=== PATIENT | male | born 1970 | race Two or more races ===

== ENCOUNTER 2018-08-07 21:10 | Emergency (ER) | payer SELFPAY ==
[2018-08-07 22:53] VITALS: BP 127/71
[2018-08-07] MEDS: BACITRACIN ZINC OINT PACKET 1 EA PACKET TP ONE (22:53)
== END 2018-08-07 22:54 | disposition home or self-care (01) ==
LOC: ER 21:23
DX: S61.211A Laceration without foreign body of left index finger without damage to nail, initial encounter (principal); W26.8XXA Contact with other sharp object(s), not elsewhere classified, initial encounter; Y93.89 Activity, other specified; Y92.89 Other specified places as the place of occurrence of the external cause; Y99.8 Other external cause status